=== PATIENT | female | born 1960 | race Two or more races ===

== ENCOUNTER 2018-10-11 09:30 | Outpatient (AMBR) | payer MEDICAID, SELFPAY ==
--- NOTE | 2018-10-04 09:34 | PT.OIERPT ---
PT OP Initial Eval Patient Information Visit Reasons: pain Medical Diagnosis: M89.4 M54.9 Treatment Dx #1: LBP Start of Care: 10/04/18 Date of Onset: 20 yrs Initial Assessment Subjective Pt is 58 yr old norwegian speaking female with RA that says everything hurts. All joints hurt and she can't remember when the LBP started because it's been a long time. 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 She has difficulty with HH chores, bending, lifting and twisting, standing more than 15 minutes. PMH: HTN, RA, Prediabetes, hyperlipidemia, fibromyalgia, lumbar DDD Imaging: with provider Pt goal: to get rid of the LBP Objective Trunk AROM: B SB 50% with pain L<R Extension: 10% with pain around L2-5 centrally Flexion: 12 from floor with LBP B rotation: 30% R SLR ROM: 35 deg with posterior knee neural tension and LBP. L SLR: 45 deg LE strength: R hamstrings: 3+/5, L 4-/5 R Quads 3+/5, L 4-/5 Hip abd/add 4-/5 TTP: moderate L paraspinals L3-5 and diffusely L3-S1 lumbar paraspinal atrophy Neuro: R SLR: positive Assessment Pt presents with trunk extension sensitivity and overlying myofascial pain and spasming around L3-5 on L side. She has lumbar extensor atrophy and pain with prolonged standing. Pt has poor/fair pelvic kinematics and difficulty finding neutral spine. These findings are consistent with lumbar DDD. Pt has positive R SLR. Short Term and Group Home Goals 1. Ind with HEP 2. Improved standing tolerance to 25 minutes with <=4/10 LBP 3. Pt will improve ambulatory distance to 2 [facility] Treatment Plan 1. Manual therapy 2. Therex 3. Modalities as indicated, moist heat, ice, estim, mechanical traction Frequency and Duration 2x a week for 6 weeks Certification Dates: 10/04/18 to 01/04/19 Office Procedures PT Procedures PT Date of Service: 10/04/18 OP PT Eval Mod Complex 30 minutes: Yes
--- NOTE | 2018-10-04 09:37 | PTNOTE_ITS ---
PT OP Initial Eval Patient Information Visit Reasons: pain Medical Diagnosis: M89.4 M54.9 Treatment Dx #1: LBP Start of Care: 10/04/18 Date of Onset: 20 yrs Initial Assessment Subjective Pt is 58 yr old jamaican speaking female with RA that says everything hurts. All joints hurt and she can't remember when the LBP started because it's been a long time. 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 She has difficulty with HH chores, bending, lifting and twisting, standing more than 15 minutes. PMH: HTN, RA, Prediabetes, hyperlipidemia, fibromyalgia, lumbar DDD Imaging: with provider Pt goal: to get rid of the LBP Objective Trunk AROM: B SB 50% with pain L<R Extension: 10% with pain around L2-5 centrally Flexion: 12 from floor with LBP B rotation: 30% R SLR ROM: 35 deg with posterior knee neural tension and LBP. L SLR: 45 deg LE strength: R hamstrings: 3+/5, L 4-/5 R Quads 3+/5, L 4-/5 Hip abd/add 4-/5 TTP: moderate L paraspinals L3-5 and diffusely L3-S1 lumbar paraspinal atrophy Neuro: R SLR: positive Assessment Pt presents with trunk extension sensitivity and overlying myofascial pain and spasming around L3-5 on L side. She has lumbar extensor atrophy and pain with prolonged standing. Pt has poor/fair pelvic kinematics and difficulty finding neutral spine. These findings are consistent with lumbar DDD. Pt has positive R SLR. Short Term and Nursing Home Goals 1. Ind with HEP 2. Improved standing tolerance to 25 minutes with <=4/10 LBP 3. Pt will improve ambulatory distance to 2 [facility] Treatment Plan 1. Manual therapy 2. Therex 3. Modalities as indicated, moist heat, ice, estim, mechanical traction Frequency and Duration 2x a week for 6 weeks Certification Dates: 10/04/18 to 01/04/19 Office Procedures PT Procedures PT Date of Service: 10/04/18 OP PT Eval Mod Complex 30 minutes: Yes
--- NOTE | 2018-10-11 09:59 | PTNOTE_ITS ---
PT Outpatient Daily Note Date of Service: October 11, 2018 OP Daily Note Visit Reasons: pain Outpatient Physical Therapy Treatment Date: 10/11/18 Subjective: Pt reports pain in B shoulders and hips today Objective: See F/S for therex TENS and MHP x7' Assessment: Moderate tissue irritability limits exercise tolerance and boles sitional movements. Plan: Reassess Length of Time (minutes) of Treatment: 30 Minutes Office Procedures PT Procedures PT Date of Service: 10/04/18 OP PT Eval Mod Complex 30 minutes: Yes PT Procedures PT Date of Service: 10/11/18 Therapeutic Exercise 30 minutes: Yes
== END 2018-11-02 23:59 | disposition home or self-care (01) ==
PROVIDERS: PCP Nurse Practitioner; Referring Provider Nurse Practitioner; Visit Provider Nurse Practitioner
DX: M54.5 Low back pain (principal); G89.4 Chronic pain syndrome; M06.9 Rheumatoid arthritis, unspecified
CPT/HCPCS: 97110; 97162

== ENCOUNTER 2025-02-15 12:18 | Emergency (ER) | payer MEDICARE, MEDICAID, SELFPAY ==
[2025-02-15 12:50] VITALS: BP 177/100; PULSE 99; RESP 18; TEMP 36.2; O2SAT 97; BMI 44.1
--- NOTE | 2025-02-15 13:24 | EDNOTE_ITS ---
<Statement entered by Jessenia Sawyer MD - 02/16/25 08:13> As co-signing physician, I was present and available for consult prn. I concur with the plan and care as documented by the midlevel provider. Upper Extremity Injury RME/HPI General Chief Complaint: Extremity Injury, Upper Stated Complaint: NEEDS PAIN MED &WRIST RE-WRAPPED Time Seen by Provider: 02/15/25 13:09 Arrival date/time: 02/15/25 12:18 Limitations: no limitations RME / HPI RME / HPI narrative: 65-year-old female here for reevaluation of left wrist pain. States broke her wrist in [place] on 01/29. Was given a splint but states now it is squeezing her wrist and making her hand puffy. Thinks it needs to be readjusted. Reports has appointment with PCP on but just got back from [place] and needed it to stop hurting so came into the ER. Related Data Previous Rx's ?Medication ?Instructions ?Recorded meloxicam 7.5 mg tablet 7.5 mg PO QDAY #14 tabs 01/26 hydrocodone 5 mg-acetaminophen 325 1 tab PO BID PRN pa in 7 days #14 02/15/25 mg tablet tabs Allergies Allergy/AdvReac Type Severity Reaction Status Date / Time NKA* Allergy Uncoded 02/15/25 12:22 Review of Systems Review of Systems Systems Reviewed: All systems reviewed, normal except as documented Constitutional Constitutional: Denies fever(s) Musculoskeletal Musculoskeletal: Reports as per HPI ED Exam General Limitations: Present no limitations General appearance: Present alert and in no apparent distress Eye Eye exam: Present normal appearance, PERRL and EOMI Respiratory Respiratory exam: Present normal lung sounds bilaterally Cardiovascular Cardiovascular exam: Present regular rate, normal rhythm and normal heart sounds Extremities Exam Extremities exam: Present full ROM and tenderness (Snuffbox tenderness, edema of the left wrist, splint wrapped too tight.) Skin Skin exam: Present warm, dry, intact and normal color Course Quality Measures none Orders Category Date Time Status Splint / Immobilizer STAT Care 02/15/25 14:15 Completed XR wrist LT 2V Stat Exams 02/15/25 13:24 Completed HYDROcodone*/APAP 5/325 [[place] 5/325] Med 02/15/25 13:24 Discontinued 1 tab PO X1 ONE Vital Signs Vital signs: Vital Signs Temperature 97.2 F 02/15/25 12:50 Pulse Rate 99 02/15/25 12:50 Respiratory Rate 18 02/15/25 12:50 Blood Pressure 177/100 H 02/15/25 12:50 Pulse Oximetry (%) 97 02/15/25 12:50 Oxygen Delivery Method Room Air 02/15/25 12:50 PROCEDURES: Splint Fabrication: Clinician Made Type: Thumb Spica Reason for Splint: Pain Management Site condition: Bruised and Pain Circulation Distal to Splint: Yes Movement Distal to Splint: Yes Senation Distal to Splint: Yes Tolerance: Tolerates Well Extremity Injury MDM Narrative MDM Narrative:: 65-year-old female with history of fracture. Imaging today confirms fracture resplinted and given medicine. Advise follow-up with PCP for Ortho referral return to ER symptoms worsen Patient data External records reviewed:: [facility] previous records Clinical information provided by:: patient Social determinants that could affect healthcare access:: other (specify) (was [place] country [place] ) Patient has the following chronic illnesses:: None How is presenting disease/condition affected by chronic disease/condition?: no chronic disease Evaluation data The following diagnostics were reviewed and interpreted by me:: radiology ex am(s) Lab and/or radiology exams considered but not ordered:: Doppler was considered however on further examination it appears that splint was improperly placed and does not need ultrasound Interpretation Summary: X-ray confirmed fracture consistent with age determined by patient Medications / Prescriptions Medications or Prescriptions considered but not ordered:: All medications considered were given Medication administrations:: Medication Administration History Discontinued Medications Hydrocodone Bitart/Acetaminophen (Hydrocodone/Apap 5/325 Tablet) 1 tab PO X1 ONE Stop: 02/15/25 13:25 Last Admin: 02/15/25 14:01 Dose: 1 tab Documented By: ANA LAURA See above Consultations Consultation(s) initiated? (list below): No Diagnosis Upper Extremity Injury Differential Diagnosis: sprain and strain of wrist, fracture of wrist, finger sprain, fracture of humerus and fracture of clavicle Most likely diagnosis given after review of the tests above:: Left wrist fracture Admission Indicated Admission indicated?: not indicated Admission Request Was there a request for admission?: No Disposition Plan Disposition Plan: Discharge Discharge Attestation Discharge Attestation: The patient and all family members were given an opportunity to ask questions and understood the discharge instructions. Discharge instructions specifically effects, indications for sooner follow up or return to the emergency department, and the expected course of current diagnosis. Patient condition: Stable Discharge Plan Plan Patient Disposition: HOME (Self Care) Discharge Disposition comment: Follow-up with PCP in 2 to 3 days for Ortho referral Prescriptions/Referrals Prescriptions/Med Rec: New hydrocodone-acetaminophen 5-325 mg tablet 1 tab PO BID MDD 2 PRN (Reason: pain) 7 Days Qty: 14 0RF No Action meloxicam 7.5 mg tablet 7.5 mg PO QDAY Qty: 14 0RF Referrals: Derrick Bhatt MD [Primary Care Provider, Pediatrics] - In 1 week Problem List Clinical Impression: Fracture of wrist Patient/Caregiver Discharge Instructions Education Materials: ED Fracture, Wrist, General Print Language: Welsh Stand Alone Forms: Emily Award Info., Patient Portal Info Letter PA/CAR RENTAL AGENCY MANAGER Supervising Physician PA/CAR RENTAL AGENCY MANAGER Supervising Physician: Dr. Sawyer
--- NOTE | 2025-02-15 13:24 | XR_ITS ---
Examination: Left wrist 2 views Technique one AP lateral left wrist 2 views Date and time: February 15, 2025 1340 hrs. Indications: Injury to the wrist 2 days ago, wrist pain. Findings: Acute impacted fracture distal radial metaphysis, no significant offset Tiny fracture off the ulnar styloid tip No dislocation Impression: Acute impacted intra-articular fracture distal radial metaphysis
[2025-02-15] MEDS: HYDROcodone/APAP 5/325 TABLET 1 TAB PO (14:01)
[2025-02-15 14:59] VITALS: BP 132/68; PULSE 78; RESP 18; TEMP 36.6; O2SAT 98
== END 2025-02-15 15:03 | disposition home or self-care (01) ==
PROVIDERS: Emergency Provider Emergency Medicine; PCP Pediatrics
DX: S62.109D Fracture of unspecified carpal bone, unspecified wrist, subsequent encounter for fracture with routine healing (principal); X58.XXXD Exposure to other specified factors, subsequent encounter
CPT/HCPCS: 29125; 73100; 99284; A9270

== ENCOUNTER → 2025-03-13 | Outpatient (CLI) | payer MEDICARE, MEDICAID, SELFPAY ==
--- NOTE | 2025-03-13 10:17 | XR_ITS ---
Examination: Wrist, left 3 views Technique: Wrist AP, oblique, lateral 3 views Date and time of exam: March 13, 2025, 1026 hours, comparison 02/15/2025 INDICATIONS: Acute comminuted fracture distal radial metaphysis 02/15/2015 FINDINGS: Early healing comminuted intra-articular fracture distal radial metaphysis Stable alignment IMPRESSION: Early healing comminuted intra-articular fracture distal radial metaphysis with stable alignment
--- NOTE | 2025-03-13 10:17 | XR_ITS ---
Examination: Hand, left 3 views Technique: Hand AP, oblique, lateral 3 views Date and time of exam: March 13, 2025, 1026 hours, comparison 02/15/2025 INDICATIONS: Acute intra-articular fracture distal radial metaphysis 02/15/2025 FINDINGS: Stable alignment comminuted intra-articular fracture distal radial metaphysis Early healing Ulnar styloid tip fractures Severe osteopenia IMPRESSION: Stable alignment comminuted intra-articular fracture distal radial metaphysis with early healing
== END | disposition home or self-care (01) ==
PROVIDERS: PCP Physician Assistant; Referring Provider Nurse Practitioner Gerontology; Visit Provider Nurse Practitioner Gerontology
DX: S52.92XA Unspecified fracture of left forearm, initial encounter for closed fracture (principal); X58.XXXA Exposure to other specified factors, initial encounter
CPT/HCPCS: 73110; 73130